=== PATIENT | male | born 1965 | race Caucasian/White ===

== ENCOUNTER → 2020-04-09 11:23 | Outpatient (BNVA) | payer BC, SELFPAY | PROVIDERS: Family Provider Family Medicine; PCP Family Medicine; Visit Provider Urology | DX: N41.1 Chronic prostatitis (principal) | CPT/HCPCS: 81001 ==

== ENCOUNTER → 2020-10-13 12:48 | Outpatient (BNVA) | payer OTHER, SELFPAY | PROVIDERS: Family Provider Family Medicine; PCP Family Medicine; Visit Provider Urology | DX: N41.1 Chronic prostatitis (principal); R30.0 Dysuria | CPT/HCPCS: 81003 ==

== ENCOUNTER → 2021-04-06 10:40 | Outpatient (BNVA) | payer OTHER, SELFPAY | PROVIDERS: Family Provider Family Medicine; PCP Family Medicine; Visit Provider Family Medicine | DX: R00.2 Palpitations (principal); Z13.6 Encounter for screening for cardiovascular disorders | CPT/HCPCS: 80053; 80061; 85025 ==

== ENCOUNTER → 2021-06-09 10:05 | Outpatient (BNVA) | payer OTHER, SELFPAY | PROVIDERS: Family Provider Family Medicine; PCP Family Medicine; Visit Provider Urology | DX: N41.1 Chronic prostatitis (principal); Z12.5 Encounter for screening for malignant neoplasm of prostate | CPT/HCPCS: 81003; G0103 ==

== ENCOUNTER 2022-01-19 13:00 | Outpatient (CLI) | payer OTHER, SELFPAY ==
--- NOTE | 2022-01-19 13:00 | USCV_ITS ---
rAamis Adan Age: 56 Gender: M : 1965 Exam Date: 01/19/2022 13:28 Ordering Phys: Jacqueline Eric MD ([email or web address]) Technologist: Rebecca Knox [place] [facility] [place]: Palpitations BP: 125 / 68 HR: 62 Rhythm: Sinus Technical Quality: Good MEASUREMENTS (Male / Female) Normal Values 2D ECHO LV Diastolic Diameter PLAX 4.4 cm 4.2 - 5.9 / 3.9 - 5.3 cm LV Systolic Diameter PLAX 2.9 cm IVS Diastolic Thickness 1.1 cm 0.6 - 1.0 / 0.6 - 0.9 cm IVS Systolic Thickness 1.1 cm LVPW Diastolic Thickness 0.9 cm 0.6 - 1.0 / 0.6 - 0.9 cm LVPW Systolic Thickness 1.2 cm LVOT Diameter 2.0 cm LV Ejection Fraction 2D Teich 63.8 % LV Ejection Fraction MOD 2C 77.7 % LV Ejection Fraction 2C AL 78.2 % LA Diameter 2.6 cm LA Width 2.9 cm LA Height 4.5 cm RA Width 2.5 cm RA Height 4.8 cm Aorta at Sinotubular Diameter 3.0 cm IVC Diameter 1.3 cm DOPPLER AV Peak Velocity 141.0 cm/s LVOT Peak Velocity 127.0 cm/s AV Area Cont Eq vti 2.9 cm squared AV Area Cont Eq pk 2.9 cm squared MV Peak Velocity 91.0 cm/s MV Area PHT 1.9 cm squared Mitral E to A Ratio 1.9 MV E' Velocity 56.5 cm/s Mitral E to MV E' Ratio 5.8 Mitral E to LV E' Lateral Ratio 4.9 Mitral E to LV E' Septal Ratio 7.1 TR Peak Velocity 239.0 cm/s TR Peak Gradient 22.8 mmHg Right Atrial Pressure 3.0 mmHg Pulmonary Artery Systolic Pressu 25.8 mmHg PV Peak Velocity 108.0 cm/s RV Acceleration Time 0.2 s FINDINGS Left Ventricle Normal left ventricular size, systolic function and wall thickness, with no regional wall motion abnormalities. Left ventricular ejection fraction is estimated at 65%. Normal diastolic function. Right Ventricle Normal right ventricular size and systolic function, RVSP 19 mmHg. Right Atrium Normal right atrial size. Left Atrium Normal left atrial size. Mitral Valve Mildly thickened mitral valve. No mitral valve stenosis. No mitral valve regurgitation. Aortic Valve Thickened trileaflet aortic valve. No aortic valve stenosis. No aortic valve regurgitation. Tricuspid Valve Structurally normal tricuspid valve. No tricuspid valve stenosis. Trace to mild tricuspid valve regurgitation. Pulmonic Valve Structurally normal pulmonic valve. No pulmonary valve stenosis. Trace pulmonary valve regurgitation. Pericardium No pericardial effusion. Aorta Normal size aortic root and proximal ascending aorta. IVC Normal IVC dimension with >50% respiratory change of the inferior vena cava. CONCLUSIONS 1. Normal left ventricular size, systolic function and wall thickness, with no regional wall motion abnormalities. Left ventricular ejection fraction is estimated at 65%. Normal diastolic function. 2. Normal right ventricular size and systolic function 3. Normal pulmonary artery pressure. 4. No prior similar studies to compare. Jacqueline Eric MD (Electronically Signed) Final Date: 23 January 2022 19:26 S
== END 2022-01-19 13:01 | disposition home or self-care (01) ==
PROVIDERS: PCP Family Medicine; Visit Provider Internal Medicine Cardiovascular Disease
DX: R06.02 Shortness of breath (principal)
CPT/HCPCS: 93306

== ENCOUNTER → 2023-04-19 14:22 | Outpatient (BNVA) | payer OTHER, SELFPAY | PROVIDERS: PCP Family Medicine; Visit Provider Internal Medicine Cardiovascular Disease | DX: R00.2 Palpitations (principal); R07.89 Other chest pain | CPT/HCPCS: 93005 ==

== ENCOUNTER → 2023-09-16 10:50 | Outpatient (BNVA) | payer OTHER, SELFPAY | PROVIDERS: PCP Family Medicine; Visit Provider Emergency Medicine | DX: R09.1 Pleurisy (principal) | CPT/HCPCS: 71046 ==

== ENCOUNTER → 2024-01-09 13:28 | Outpatient (BNVA) | payer OTHER, SELFPAY | PROVIDERS: PCP Family Medicine; Visit Provider Family Medicine | DX: N41.1 Chronic prostatitis (principal) | CPT/HCPCS: 80053; 80061; 82306; 82607; 84443; 85025; G0103 ==

== ENCOUNTER → 2024-10-09 12:20 | Outpatient (BNVA) | payer OTHER, SELFPAY | PROVIDERS: PCP Nurse Practitioner Family; Visit Provider Nurse Practitioner Family | DX: R00.2 Palpitations (principal) | CPT/HCPCS: 80053; 83036; 83735; 84443; 85025 ==